=== PATIENT | female | born 1995 | race Caucasian/White ===

== ENCOUNTER 2016-10-20 15:25 | Emergency (ER) | payer OTHER ==
[2016-10-20 15:30] VITALS: BMI 24.7
--- NOTE | 2016-10-20 18:23 | C.PDOC ---
History Of Present Illness 21-year-old female, seen in the ED a few days ago for pelvic cramps, found to be with a low beta count and 3mm cystic structure probably IUP on US. Patient reports she developed vaginal spotting associated with suprapubic cramps last night, resulting in her coming to the ED for evaluation. Denies nausea/vomiting,dizziness, headache, or any other associated symptoms. No other complaints at this time. Time Seen by Provider: 10/20/16 16:36 Chief Complaint (Nursing): Female Genitourinary History Per: Patient History/Exam Limitations: no limitations Past Medical History Reviewed: Historical Data, Nursing Documentation, Vital Signs Vital Signs: Last Vital Signs Temp 98.3 F 10/20/16 15:30 Pulse 83 10/20/16 15:30 Resp 18 10/20/16 15:30 BP 121/77 10/20/16 15:30 Pulse Ox 100 10/20/16 18:59 Family History: States: Unknown Family Hx - Social History Hx Alcohol Use: Yes Hx Substance Use: No - Immunization History Hx Tetanus Toxoid Vaccination: No Hx Influenza Vaccination: No Hx Pneumococcal Vaccination: No Review Of Systems Except As Marked, All Systems Reviewed And Found Negative. Constitutional: Negative for: Fever, Chills Cardiovascular: Negative for: Chest Pain Respiratory: Negative for: Shortness of Breath Gastrointestinal: Negative for: Vomiting Genitourinary: Positive for: Vaginal Bleeding, Pelvic Pain. Negative for: Dysuria, Frequency Musculoskeletal: Negative for: Back Pain Skin: Negative for: Rash Neurological: Negative for: Weakness, Numbness, Headache, Dizziness Physical Exam - Physical Exam Appears: Non-toxic, No Acute Distress Skin: Normal Color, Warm, Dry, No Rash Head: Atraumatic, Normacephalic Eye(s): bilateral: Normal Inspection, PERRL Nose: Normal Oral Mucosa: Moist Lips: Normal Appearing Neck: Normal ROM Cardiovascular: Rhythm Regular Respiratory: Normal Breath Sounds, No Accessory Muscle Use Gastrointestinal/Abdominal: Soft, No Tenderness Back: Normal Inspection Extremity: Normal ROM Neurological/Psych: Oriented x3, Normal Speech ED Course And Treatment O2 Sat by Pulse Oximetry: 100 - CT Scan/US TRANSVAGINAL US Other Rad Studies (CT/US): Read By Radiologist, Radiology Report Reviewed CT/US Interpretation: Accession No. : [id number]. Patient Name / ID : TAMIA CABRAL / [id number]. Exam Date : 10/20/2016 18:10:14 ( Approved ). Study Comment : Sex / Age : F / 21Y. Creator : Marcio Obrien. Dictator : Marcio Obrien. Living Supervisor : Coal Hiker : Marcio Obrien. Approver2 : Report Date : 10/20/2016 18:40:05. My Comment : . HISTORY: , vaginal bleeding. COMPARISON: Comparison is made to the previous study dated 2016. TECHNIQUE: Transvaginal ultrasound examination of the pelvis was performed. FINDINGS: UTERUS: Measures 7.4 x 3.6 x 4.6 cm. Normal in size and appearance. No fibroid or other mass lesion seen. ENDOMETRIUM: Measures 15.1 mm in diameter. Slightly heterogeneous endometrium without evidence of gestational sac. CERVIX: No cervical abnormality identified. RIGHT OVARY: Measures 2.7 x 1.5 x 2.4 cm. No solid mass. Normal flow. LEFT OVARY: Measures 2.7 x 1.7 x 2.1 cm. No solid mass. Normal flow. FREE FLUID: No significant free fluid noted. OTHER FINDINGS: None. IMPRESSION: No evidence of intrauterine . Slightly heterogeneous thick endometrium measures 15.1 millimeter. No evidence of acute pathology in the ovaries. If clinically warranted follow-up study in 4-6 weeks may be obtained for further assessment. Disposition - Disposition Disposition: HOME/ ROUTINE Disposition Time: 19:01 Condition: STABLE Additional Instructions: Follow up with PMD and OBGYN within 1-2 days. return to Ed if feel worse. Instructions: Spontaneous Miscarriage (ED) - Clinical Impression Clinical Impression: Spontaneous - Scribe Statement The provider has reviewed the documentation as recorded by the Scribe Brenda Whittington All medical record entries made by the Scribe were at my direction and personally dictated by me. I have reviewed the chart and agree that the record accurately reflects my personal performance of the history, physical exam, medical decision making, and the department course for this patient. I have also personally directed, reviewed, and agree with the discharge instructions and disposition.
--- NOTE | 2016-10-20 18:41 | US ---
HISTORY: , vaginal bleeding COMPARISON: Comparison is made to the previous study dated 10/18/2016 TECHNIQUE: Transvaginal ultrasound examination of the pelvis was performed. FINDINGS: UTERUS: Measures 7.4 x 3.6 x 4.6 cm. Normal in size and appearance. No fibroid or other mass lesion seen. ENDOMETRIUM: Measures 15.1 mm in diameter. Slightly heterogeneous endometrium without evidence of gestational sac. CERVIX: No cervical abnormality identified. RIGHT OVARY: Measures 2.7 x 1.5 x 2.4 cm. No solid mass. Normal flow. LEFT OVARY: Measures 2.7 x 1.7 x 2.1 cm. No solid mass. Normal flow. FREE FLUID: No significant free fluid noted. OTHER FINDINGS: None. IMPRESSION: No evidence of intrauterine . Slightly heterogeneous thick endometrium measures 15.1 millimeter. No evidence of acute pathology in the ovaries. If clinically warranted follow-up study in 4-6 weeks may be obtained for further assessment.
[2016-10-20 19:14] VITALS: BP 121/71; PULSE 61; RESP 15; TEMP 98.6
[2016-10-20 19:17] VITALS: O2SAT 100
== END 2016-10-20 19:13 | disposition home or self-care (01) ==
LOC: C.ER 15:25
DX: O03.9 Complete or unspecified spontaneous abortion without complication (principal)

== ENCOUNTER 2018-08-07 13:00 | Emergency (ER) | payer OTHER ==
[2018-08-07 13:00] VITALS: BMI 24.7
[2018-08-07 14:03] VITALS: TEMP 98.5
--- NOTE | 2018-08-07 14:54 | C.PDOC ---
History Of Present Illness 23 year old female, with no significant past medical history, presents to the ED for evaluation of burning with urination, urinary urgency, and left-sided abdominal pain which began around one week ago. Patient denies fever, chills, nausea, vomiting. Time Seen by Provider: 08/07/18 14:10 Chief Complaint (Nursing): Female Genitourinary History Per: Patient History/Exam Limitations: no limitations Onset/Duration Of Symptoms: Days Current Symptoms Are (Timing): Still Present Quality Of Discomfort: Burning Additional History Per: Patient Abnormal Vaginal Bleeding: No Past Medical History Reviewed: Historical Data, Nursing Documentation, Vital Signs Vital Signs: Last Vital Signs Temp 98.5 F 08/07/18 14:00 Pulse 86 08/07/18 14:00 Resp 18 08/07/18 14:00 BP 128/90 08/07/18 14:00 Pulse Ox 95 08/07/18 14:00 - Medical History PMH: No Chronic Diseases Surgical History: No Surg Hx Family History: States: Unknown Family Hx - Social History Hx Alcohol Use: Yes Hx Substance Use: No - Immunization History Hx Tetanus Toxoid Vaccination: No Hx Influenza Vaccination: No Hx Pneumococcal Vaccination: No Review Of Systems Constitutional: Negative for: Fever, Chills Gastrointestinal: Positive for: Abdominal Pain (left-sided ) Genitourinary: Positive for: Other (burning with urination, urinary urgency ) Physical Exam - Physical Exam Appears: Non-toxic, No Acute Distress Skin: Normal Color, Warm, Dry Head: Atraumatic, Normacephalic Eye(s): bilateral: Normal Inspection Oral Mucosa: Moist Neck: Supple Chest: Symmetrical, No Deformity, No Tenderness Cardiovascular: Rhythm Regular, No Murmur Respiratory: Normal Breath Sounds, No Rales, No Rhonchi, No Wheezing Gastrointestinal/Abdominal: Bowel Sounds (positive ), Soft, Tenderness (suprapubic ), No Guarding, No Rebound Back: No CVA Tenderness Extremity: Normal ROM, Capillary Refill (less than 2 seconds ) Neurological/Psych: Oriented x3, Normal Speech, Normal Cognition ED Course And Treatment O2 Sat by Pulse Oximetry: 95 (on RA) Pulse Ox Interpretation: Normal Medical Decision Making Medical Decision Making: Progress: Urinalysis ordered and reviewed. On reassessment, patient is resting comfortably, showing no signs of distress and is stable for discharge. Patient is advised to follow up with clinic within 1-2 days for further evaluation. Advised to return to the ED if symptoms persist or worsen. Disposition Counseled Patient/Family Regarding: Studies Performed, Diagnosis, Need For Followup - Disposition Referrals: [facility] [Outside] [facility] [Outside] Disposition: HOME/ ROUTINE Disposition Time: 16:20 Condition: GOOD Additional Instructions: MISHA CANTRELL, thank you for letting us take care of you today. Your provider was Michelle Fagan MD and you were treated for URINARY TRACT INFECTION. The emergency medical care you received today was directed at your acute symptoms. If you were prescribed any medication, please fill it and take as directed. It may take several days for your symptoms to resolve. Return to the Emergency Department if your symptoms worsen, do not improve, or if you have any other problems. Please call one of the physicians/clinics you have been referred to that are listed on the Patient Visit Information form that is included in your discharge packet. Bring any paperwork you were given at discharge with you along with any medications you are taking to your follow up visit. Our treatment cannot replace ongoing medical care by a primary care provider outside of the emergency department. Thank you for allowing the [facility] team to be part of your care today. Prescriptions: Sulfamethoxazole/Trimethoprim [Bactrim DS 800 mg-160 mg] 1 tab PO BID #14 tab Forms: [employer] (Citizen [place]), General Discharge Instructions - POA Present On Arrival: None - Clinical Impression Clinical Impression: UTI (urinary tract infection) - Scribe Statement The provider has reviewed the documentation as recorded by the Scribe (Lauryn Linder) Provider Attestation: All medical record entries made by the Scribe were at my direction and personally dictated by me. I have reviewed the chart and agree that the record accurately reflects my personal performance of the history, physical exam, medical decision making, and the department course for this patient. I have also personally directed, reviewed, and agree with the discharge instructions and disposition.
[2018-08-07 15:58] LABS: SQUAMOUS EPITHIAL 1 /hpf (0-5); URINE AMORPHOUS SEDIMENT RARE /ul (<OCC); URINE BACTERIA OCC (<OCC); URINE BILIRUBIN NEGATIVE (NEGATIVE); URINE BLOOD NEGATIVE (NEGATIVE); URINE CLARITY Hazy (Clear); URINE COLOR Yellow (YELLOW); URINE GLUCOSE (UA) NORMAL (Normal); URINE LEUKOCYTE ESTERASE TRACE Leu/uL (Negative); URINE PROTEIN NEGATIVE (NEGATIVE); URINE UROBILINOGEN NORMAL mg/dL (0.2-1.0)
[2018-08-07] MEDS ORDERED: Tmp-Smz 800 mg-160 mg DS Tab PO STA (16:18)
[2018-08-07] MEDS ORDERED: Tmp-Smz 800 mg-160 mg DS Tab ONE (16:31)
[2018-08-07 16:38] VITALS: BP 115/69; PULSE 61; RESP 20; O2SAT 100
== END 2018-08-07 16:40 | disposition home or self-care (01) ==
LOC: C.ER 13:00
DX: N39.0 Urinary tract infection, site not specified (principal)

== ENCOUNTER 2018-11-12 17:18 | Emergency (ER) | payer OTHER ==
[2018-11-12 17:18] VITALS: BMI 24.7
[2018-11-12 17:47] VITALS: RESP 18
[2018-11-12] MEDS ORDERED: Amoxicillin-Clav 875-125 mg Tab PO STA (18:18)
--- NOTE | 2018-11-12 18:20 | C.PDOC ---
History Of Present Illness 23-year-old female presents to the ED for evaluation of sore throat which began 3 days ago. Patient denies fever, chills, nausea, vomiting and diarrhea. Time Seen by Provider: 11/12/18 17:49 Chief Complaint (Nursing): ENT Problem History Per: Patient History/Exam Limitations: None Onset/Duration Of Symptoms: Days (3) Current Symptoms Are (Timing): Still Present Past Medical History Reviewed: Historical Data, Nursing Documentation, Vital Signs Vital Signs: Last Vital Signs Temp 98.9 F 11/12/18 17:45 Pulse 90 11/12/18 17:45 Resp 18 11/12/18 17:45 BP 120/77 11/12/18 17:45 Pulse Ox 100 11/12/18 17:45 - Medical History PMH: No Chronic Diseases Surgical History: No Surg Hx Family History: States: Unknown Family Hx - Social History Hx Alcohol Use: Yes Hx Substance Use: No - Immunization History Hx Tetanus Toxoid Vaccination: No Hx Influenza Vaccination: No Hx Pneumococcal Vaccination: No Review Of Systems Constitutional: Negative for: Fever, Chills ENT: Positive for: Throat Pain Gastrointestinal: Negative for: Nausea, Vomiting, Diarrhea Physical Exam - Physical Exam Appears: Non-toxic, No Acute Distress Skin: Normal Color, Warm, Dry Head: Atraumatic, Normacephalic Eye(s): bilateral: Normal Inspection Ear(s): Bilateral: Normal Nose: Normal, No Discharge Oral Mucosa: Moist Throat: Other (bilateral tonsillar erythema with some exudates ) Neck: Supple Lymphatic: Adenopathy Chest: Symmetrical, No Deformity, No Tenderness Cardiovascular: Rhythm Regular, No Murmur Respiratory: Normal Breath Sounds, No Rales, No Rhonchi, No Wheezing Extremity: Normal ROM, Capillary Refill (less than 2 seconds ) Neurological/Psych: Oriented x3, Normal Speech, Normal Cognition ED Course And Treatment O2 Sat by Pulse Oximetry: 100 (on RA) Pulse Ox Interpretation: Normal Progress Note: Augmentin PO given. On reassessment, patient is resting comfortably, showing no signs of distress and is stable for discharge. Patient is advised to f/u with PMD within 1-2 days for further evaluation. Disposition - Disposition Referrals: [facility] [Outside] Disposition: HOME/ ROUTINE Disposition Time: 18:18 Condition: STABLE Additional Instructions: Follow up in Clinic within 1-2 days. Return to ED if feel worse. Prescriptions: Amoxicillin/Clavulanate [Augmentin 875 MG-125 MG] 1 tab PO BID #14 tab Instructions: Sore Throat in Adults Forms: [facility] (Turkish) - Clinical Impression Clinical Impression: Pharyngitis - PA / BRICK OFF BEARER / Resident Statement MD/DO has reviewed & agrees with the documentation as recorded. - Scribe Statement The provider has reviewed the documentation as recorded by the Scribe (Lauryn Linder) All medical record entries made by the Scribe were at my direction and personally dictated by me. I have reviewed the chart and agree that the record accurately reflects my personal performance of the history, physical exam, medical decision making, and the department course for this patient. I have also personally directed, reviewed, and agree with the discharge instructions and disposition.
[2018-11-12] MEDS ORDERED: Amoxicillin-Clav 875-125 mg Tab PO ONE (18:44)
[2018-11-12 19:03] VITALS: BP 112/69; PULSE 76; TEMP 97.9
[2018-11-12 20:38] VITALS: O2SAT 100
== END 2018-11-12 19:03 | disposition home or self-care (01) ==
LOC: C.ER 17:18
DX: J02.9 Acute pharyngitis, unspecified (principal)